=== PATIENT | female | born 1960 | race Caucasian/White ===

== ENCOUNTER 2017-10-22 11:56 | Emergency (ER) | payer OTHER ==
[2017-10-22 12:13] VITALS: BP 120/77; PULSE 89; TEMP 98.5; BMI 30.3
--- NOTE | 2017-10-22 13:21 | PDOC ---
History of Present Illness - General Chief Complaint: Pain Stated Complaint: FINGER PAIN Time Seen by Provider: 10/22/17 12:25 History Source: Patient Exam Limitations: No Limitations - History of Present Illness Initial Comments: 10/22/17 13:17 57-year-old woman presents emergency Department with right fourth digit pain for the past 3 days. Patient does not remember striking her finger or any trauma to it. She denies any fevers, chills, streaking. Past History - Past Medical History Allergies/Adverse Reactions: Allergies Allergy/AdvReac Type Severity Reaction Status Date / Time Penicillins Allergy Verified 04/17/14 08:15 Home Medications: Ambulatory Orders Clindamycin HCl [Cleocin HCl] 300 mg PO TID #21 capsule 04/17/14 Levothyroxine [Synthroid -] 100 mcg PO DAILY 04/17/14 Oxycodone HCl/Acetaminophen [Percocet 5-325 mg Tablet -] 1 - 2 tab PO Q4H PRN # 20 tablet 04/17/14 Clindamycin [Cleocin -] 150 mg PO Q8H #21 capsule 10/22/17 Clindamycin [Cleocin -] 300 mg PO TID #21 capsule 10/22/17 Asthma: Yes COPD: No Psychiatric Problems: Yes (DEPRESSION) Thyroid Disease: Yes - Suicide/Smoking/Psychosocial Hx Smoking History: Current every day smoker Have you smoked in the past 12 months: Yes Number of Cigarettes Smoked Daily: 7 Information on smoking cessation initiated: Yes 'Breaking Loose' booklet given: 10/22/17 Hx Alcohol Use: No Drug/Substance Use Hx: No Substance Use Type: None Review of Systems - Review of Systems Able to Perform ROS?: Yes Is the patient limited Yemeni proficient: No Constitutional: No: Symptoms Reported HEENTM: No: Symptoms Reported Respiratory: No: Symptoms reported Cardiac (ROS): No: Symptoms Reported ABD/GI: No: Symptoms Reported : No: Symptoms Reported Musculoskeletal: Yes: See HPI Integumentary: No: Symptoms Reported Neurological: No: Symptoms reported *Physical Exam - Vital Signs Last Vital Signs Temp Pulse Resp BP Pulse Ox 98.5 F 89 20 120/77 96 10/22/17 12:05 10/22/17 12:05 10/22/17 12:05 10/22/17 12:05 10/22/17 12:05 - Physical Exam General Appearance: Yes: Appropriately Dressed. No: Apparent Distress Extremity: positive: Normal Capillary Refill, Normal Range of Motion, Erythema ( Distal tip of the fourth digit on the right hand) Neurologic: positive: Alert, Normal Response ED Treatment Course - RADIOLOGY Radiology Studies Ordered: Category Date Time Status FINGER(S) RIGHT [RAD] Stat Radiology 10/22/17 13:17 Ordered Medical Decision Making - Medical Decision Making 10/22/17 13:19 A/P: 57-year-old woman with atraumatic pain of the fourth digit of the right hand Erythema noted to the distal tip of the fourth digit of the right hand No induration present Tender to area of erythema Full sensation noted to fingers No area of fluctuance present Able to fully flex and extend fingers against resistance X-ray, reassess 10/22/17 13:29 Wet read of x-rays by me: No fractures or dislocations noted. I will discharge the patient home treat for cellulitis. Patient is look to penicillin I will treat with clindamycin 450 mg 3 times a day for 7 days. *DC/Admit/Observation/Transfer Diagnosis at time of Disposition: Cellulitis Qualifiers: Site of cellulitis: extremity Site of cellulitis of extremity: finger Laterality: right Qualified Code(s): L03.011 - Cellulitis of right finger - Discharge Dispostion Disposition: HOME Condition at time of disposition: Stable Decision to Admit order: No - Prescriptions Prescriptions: Clindamycin [Cleocin -] 150 mg PO Q8H #21 capsule Clindamycin [Cleocin -] 300 mg PO TID #21 capsule - Referrals - Patient Instructions Additional Instructions: Take clindamycin 450mg 3x a day for 7 days. Finish all antibiotics even if you feel better. Apply warm compresses to your finger as needed. Return to emergency department for any worsening pain, drainage, hearing loss, or any other concerns. Thank you very much for choosing us to provide your emergent health care needs. - Post Discharge Activity
== END 2017-10-22 13:43 | disposition home or self-care (01) ==
LOC: JERFT 11:56
DX: L03.011 Cellulitis of right finger (principal)
CPT/HCPCS: 73140-TC-RT-FY; 99281-25

== ENCOUNTER 2023-04-02 10:57 | Emergency (ER) | payer OTHER ==
[2023-04-02 11:02] VITALS: BP 141/71; PULSE 79; RESP 18; TEMP 98.3; BMI 31.4
[2023-04-02 12:08] LABS: BASO % 0.3 % (0-2.0); EOS % 4.3 % (0-4.5); HEMATOCRIT 45.4 % (32.4-45.2); HEMOGLOBIN 14.6 GM/dL (10.7-15.3); LYMPH % 20.2 % (8-40); MCH 31.5 pg (25.7-33.7); MCHC 32.2 g/dl (32.0-36.0); MEAN CELL VOLUME 97.8 fl (80-96); MEAN PLT VOLUME 7.6 fl (7.5-11.1); NEUT % 70.2 % (42.8-82.8); PLATELET COUNT 571 10^3/uL (134-434); RBC 4.64 M/mm3 (3.60-5.2); RDW 17.2 % (11.6-15.6); WHITE BLOOD COUNT 7.5 K/mm3 (4.0-10.0)
[2023-04-02 12:26] LABS: POTASSIUM 4.7 mmol/L (3.5-5.1)
[2023-04-02 12:27] LABS: CALCIUM 9.4 mg/dL (8.5-10.1)
[2023-04-02 12:28] LABS: BLOOD UREA NITROGEN 9.9 mg/dL (7-18)
[2023-04-02 12:31] LABS: CREATININE 0.8 mg/dL (0.55-1.3)
[2023-04-02] MEDS ORDERED: predniSONE 20 MG TABLET (UD) PO ONE (13:01)
[2023-04-02] MEDS ORDERED: ACETAMINOPHEN 500 MG TABLET (FP) PO ONE (13:01)
[2023-04-02] MEDS ORDERED: ACETAMINOPHEN 500 MG TABLET (FP) ONE (13:02)
[2023-04-02] MEDS ORDERED: predniSONE 20 MG TABLET (UD) ONE (13:02)
== END 2023-04-02 13:04 | disposition home or self-care (01) ==
LOC: JERFT 10:57
DX: R68.84 Jaw pain (principal); K11.20 Sialoadenitis, unspecified
CPT/HCPCS: 36415; 76536-TC; 80048; 85025; 99284-25